=== PATIENT | male | born 1990 | race American Indian/Alaskan Native ===

== ENCOUNTER 2018-07-23 02:04 | Emergency (ER) | payer OTHER ==
[2018-07-23 02:10] VITALS: BP 119/84
--- NOTE | 2018-07-23 02:40 | XRay Report ---
PROCEDURE: XR CHEST ROUTINE 2V TECHNIQUE: PA and lateral chest radiographs were obtained. HISTORY: Chest Pain COMPARISONS: None. FINDINGS: Heart: Normal. Mediastinum/Vessels: Normal. Lungs/Pleural space: Normal. Bony thorax: No acute osseous abnormality. IMPRESSION: Normal examination. This document is electronically signed by Chip Hall MD., July 23 2018 02:38:53 AM ET
--- NOTE | 2018-07-23 05:25 | Emergency Department Report ---
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 Patient put it was sharp felt like his heart was fluttering and he had some shortness of breathing. Patient denies any pain at this present denies any shortness of breathing. Patient denies any cough, he does not smoke does not drink or does illicit drugs. Patient reports that he had this same issue back in March but this is the first time he is being followed up patient reports a past medical history of asthma currently takes no medications on a daily basis. Patient denies any alleviating or aggravating factors. -: This evening Location: chest Radiation: non-radiation Severity scale (0 -10): 0 Quality: sharp Consistency: intermittent Improves with: none Worsens with: none Associated Symptoms: denies other symptoms Treatments Prior to Arrival: none - Related Data Previous Rx's Medication Instructions Recorded Last Taken Type Ibuprofen [Motrin 600 MG tab] 600 mg PO Q8H PRN #15 tablet 07/23/18 Unknown Rx Allergies Allergy/AdvReac Type Severity Reaction Status Date / Time No Known Allergies Allergy Verified 07/23/18 02:08 ED Review of Systems ROS: Stated complaint: CP,SOB Other details as noted in HPI Comment: All other systems reviewed and negative ED Past Medical Hx - Past Medical History Previous Medical History?: Yes Hx Asthma: Yes - Surgical History Past Surgical History?: No - Social History Smoking Status: Never Smoker Substance Use Type: None - Medications Home Medications: Home Medications Medication Instructions Recorded Confirmed Last Taken Type Ibuprofen [Motrin 600 MG tab] 600 mg PO Q8H PRN #15 tablet 07/23/18 Unknown Rx ED Physical Exam - General Limitations: No Limitations General appearance: alert, in no apparent distress - Head Head exam: Present: atraumatic, normocephalic - Eye Eye exam: Present: normal appearance - ENT ENT exam: Present: mucous membranes moist - Neck Neck exam: Present: normal inspection - Respiratory Respiratory exam: Present: normal lung sounds bilaterally, chest wall tenderness. Absent: respiratory distress - Cardiovascular Cardiovascular Exam: Present: regular rate (left chest wall tenderness), normal rhythm. Absent: systolic murmur, diastolic murmur, rubs, gallop - GI/Abdominal GI/Abdominal exam: Present: soft - Neurological Exam Neurological exam: Present: alert, oriented X3 - Psychiatric Psychiatric exam: Present: normal affect, normal mood - Skin Skin exam: Present: warm, dry, intact, normal color. Absent: rash ED Course Vital Signs 07/23/18 02:09 Temperature 98.0 F Pulse Rate 70 Respiratory 16 Rate Blood Pressure 119/84 [Right] O2 Sat by Pulse 100 Oximetry ED Medical Decision Making - Radiology Data Radiology results: report reviewed Patient: MARCO HERNANDEZ MR#: [id number] : 1990 Acct:[id number] Age/Sex: 27 / M ADM Date: 07/23/18 Loc: ED Attending Dr: Ordering Physician: DALLAS BALES MD Date of Service: 07/23/18 Procedure(s): XR chest routine 2V Accession Number(s): [id number] cc: ED MD NII Fluoro Time In Minutes: PROCEDURE: XR CHEST ROUTINE 2V TECHNIQUE: PA and lateral chest radiographs were obtained. HISTORY: Chest Pain COMPARISONS: None. FINDINGS: Heart: Normal. Mediastinum/Vessels: Normal. Lungs/Pleural space: Normal. Bony thorax: No acute osseous abnormality. IMPRESSION: Normal examination. This document is electronically signed by Chip Meade MD., July 23 2018 02:38:53 AM ET Transcribed By: CO Dictated By: CHIP MEADE MD Electronically Authenticated By: CHIP MEADE MD Signed Date/Time: 07/23/18239 DD/ 8 TD/TT: 07/23/18228 - Medical Decision Making Patient has been evaluated by this provider and [facility]. X-ray EKG within normal limits Patient will be discharged home on ibuprofen. Critical care attestation.: If time is entered above; I have spent that time in minutes in the direct care of this critically ill patient, excluding procedure time. ED Disposition Clinical Impression: Chest wall tenderness Disposition: DC-01 TO HOME OR SELFCARE Is pt being admited?: No Does the pt Need Aspirin: No Condition: Stable Instructions: Chest Pain (ED) Additional Instructions: Your chest x-ray and EKG were all within normal limits. U have chest wall tenderness please take ibuprofen for pain management follow-up with the primary care provider I have listed their information below for your convenience. Prescriptions: Ibuprofen [Motrin 600 MG tab] 600 mg PO Q8H PRN #15 tablet PRN Reason: Pain Referrals: PRIMARY CARE, [Primary Care Provider] - 3-5 Days
== END 2018-07-23 05:52 | disposition home or self-care (01) ==
LOC: ED 02:04
DX: R07.89 Other chest pain (principal); J45.909 Unspecified asthma, uncomplicated
CPT/HCPCS: 71046; 93005; 93010; 99283